=== PATIENT | female | born 1980 | race African-American/Black ===

== ENCOUNTER 2016-10-31 23:55 | Inpatient (IN) | payer OTHER, MEDICAID ==
[~2016-10-31] VITALS: Ht 157.5 cm; Wt 62.1 kg
[2016-11-01] MEDS ORDERED: Hemorrhage Kit, Post Partum XX ONE ×2 (00:30→10:25)
[2016-11-01] MEDS ORDERED: Ondansetron 2 mg/mL 2 mL Inj IVPUSH PRN (00:30)
[2016-11-01] MEDS ORDERED: Oxytocin 10 Unit/mL Inj IM PRN ×2 (00:30→10:25)
[2016-11-01] MEDS ORDERED: Sodium Chloride LOK Flush 10 mL Syringe IVFLUSH PRN (00:30)
[2016-11-01] MEDS ORDERED: Oxytocin 30 Units/500 mL LR 30 UNITS in IV Premix 1 EACH IV PRN ×2 (00:30→10:25)
[2016-11-01] MEDS ORDERED: Methylergonovine 0.2 mg/mL Inj IM PRN ×2 (00:30→10:25)
[2016-11-01] MEDS ORDERED: Carboprost 250 mCg/mL Inj IM PRN ×2 (00:30→10:25)
[2016-11-01 01:03] LABS: Mean Corpuscular Hemoglobin 31.5 pg (27.0-35.0); Mean Corpuscular Volume 92.6 fL (81-100)
[2016-11-01] MEDS: Lactated Ringer's 1,000 ML IV PRN ×2 (03:13→05:22)
[2016-11-01] MEDS ORDERED: PNV1TABL PO (03:37)
[2016-11-01] MEDS ORDERED: [UNRECOGNIZED DRUG - CODE] PO (03:37)
[2016-11-01 04:20] LABS: BASOPHILS % (AUTO) 0.3 % (0-3); EOSINOPHILS % (AUTO) 0.6 % (0-5); Mean Corpuscular Hemoglobin 31.1 pg (27.0-35.0); Mean Corpuscular Volume 90.6 fL (81-100); NEUTROPHILS % (AUTO) 49.1 % (40-74); Platelet Count 92 bil/L (150-400)
[2016-11-01] MEDS: fentaNYL-PF 50 mCg/mL 2 mL Inj IVPUSH PRN ×3 (04:59→09:01)
[2016-11-01 05:39] LABS: Mean Corpuscular Hemoglobin 31.6 pg (27.0-35.0); Mean Corpuscular Volume 93.3 fL (81-100)
[2016-11-01 06:59] LABS: INR 0.87 ratio
--- NOTE | 2016-11-01 07:16 | PCM.ANEPRE ---
Anesthesia Pre-Op Review Reason for Review: Asked to see patient regarding candidacy for epidural placement. Anesthesia Recommendations: Delay until Additional Data Obtain Additional Comments Thrombocytopenic at initial lab draw early this morning. Now with 3 subsequent platelet counts of <100 and trending lower. At this time she is not a candidate for an epidural given the risk of epidural hematoma and down-trending platelets. I recommend opioid and non-opioid analgesia and serial CBC and platelet counts. I have spoken with the patient who is aware of this plan and communicated with the drier belt conveyor. Kevin Champagne MD Nov 01, 2016 07:16
[2016-11-01] MEDS ORDERED: Acetaminophen IV 1,000 MG in IV Premix 1 EACH IV ONE (07:25)
--- NOTE | 2016-11-01 09:33 | PROG NOTE ---
[address] [address] PROGRESS NOTE PATIENT: SHAY SILVESTRE : 1980 MR#: [id number] ADMIT: 11/01/2016 JOB ID: [id number] DATE: 11/01/2016 [facility] NOTE: SUBJECTIVE: The patient is a 36-year-old, G2, P1, AB0, woman, followed prenatally at [facility], see record for details. She ruptured membranes last evening at around 2300 hour, clear fluid. She did not go into labor immediately and was observed for a few hours before Pitocin augmentation was initiated. Initial cervical exam gradually changed to 3.5 cm and now to 6 to 6.5 cm. heart tracing has been okay. Uterine contractions are sometimes a little bit spaced, although contraction progress is continuing, and Pitocin continues. The patient and have understood the importance of Pitocin augmentation for the purpose of initiating and then shortening labor progress in the interest of avoiding infection in light of the ruptured membranes. Note that patient's platelets have been gradually dropping since admission, 97, then 92, then 87, then 80. Current lab pending along with coagulation studies. The patient has very much wanted an epidural anesthetic, although anesthesiologist felt that this could potentially be risky for patient in light of the low and dropping platelets. Thus, intravenous fentanyl and intravenous Tylenol have been provided, along with multiple position changes, time in the bath and a lot of encouragement. It has been our suspicion than gestational thrombocytopenia is present, although cannot rule out ITP or some obscure cause. We have not suspected preeclampsia and note that preeclampsia labs have been fine, and there have been no specific blood pressure or other concerns. We are continuing to track platelets, and I have been in touch with perinatologist at the [facility], as well as local OB anesthesia regarding things we can do to help keep the patient more comfortable, as well as simply regarding the low platelet issue. It appears that labor is now more rapidly progressing, and the patient feels a lot of pressure and desire to push. At 6 to 6.5 cm dilatation, and with head at 0 to +1 station, I am hoping that cervix will soon fade and then that she will be able to soon push out her baby. I have discussed all these things with the patient and her , and they understand. The patient asked for a , although I have explained, as has the nursing staff, the potential increased risk at surgery from a bleeding standpoint with low and dropping platelets, similar to concerns regarding epidural or spinal anesthesia. We are taking one contraction at a time and hoping for progressive cervical change and then soon delivery. Note that the patient's has been very helpful and supportive to his and also has been very, very encouraging for breathing and ongoing efforts to achieve a vaginal . IMPRESSION: 1. A 38 and 5/7 weeks , with prior vaginal delivery. 2. Prior difficult vaginal reportedly after a very lengthy labor and long pushing and reportedly with patient needing multiple providers to lift and position her in order to deliver the head, details sketchy. 3. Spontaneous rupture of membranes at 2300 hours last evening. 4. Active labor now, with Pitocin augmentation occurring. 5. Desires of epidural, although only intravenous fentanyl and some acetaminophen have been provided in light of low platelets. 6. Thrombocytopenia, lowest platelet count thus far at 80 and with trend downward, suspect gestational thrombocytopenia, cannot rule out idiopathic thrombocytopenic purpura. No specific evidence for preeclampsia or other more obscure thrombocytopenia conditions. Another platelet count and coagulation study profile pending. 7. Prior hepatitis B, based on lab findings (negative hepatitis B surface antigen and negative hepatitis Be antigen and negative hepatitis B core antibody IgM). Hepatitis B surface antibody and core antibody total are positive, as is hepatitis Be antibody. Suspect immunity due to natural infection in the past. 8. Declined quad screen. 9. Anemia noted earlier in , with iron-rich foods and iron supplementation recommended. 10. Up to date with flu vaccine and Tdap. 11. Rh positive. 12. Rubella immune. 13. Negative group B streptococcus status. 14. LATEX allergy. 15. Family history of diabetes (brother, type 1), hypertension (parents) and congenital anomaly (brother, type?). PLAN: Continuing labor management expectantly, with great support, unable to provide neuroaxial anesthesia, and preferring vaginal delivery over delivery in an effort to avoid bleeding problems in light of low platelets. Current platelet count and coagulation studies pending, intravenous fentanyl dosing plus intravenous acetaminophen infusion provided for pain, heat pack applied, position changes ongoing, etc. We have also checked with the blood bank and typed and crossed for a couple units of packed red blood cells in case needed, and also reserved the 4 units of platelets that are in our hospital in case needed.
[2016-11-01] MEDS ORDERED: Lactated Ringer's 1,000 ML IV SCH (10:24)
[2016-11-01] MEDS ORDERED: Benzocaine (Dermoplast) 20% 60 Gm Spray TOPICAL PRN (10:25)
[2016-11-01] MEDS ORDERED: Measles-Mumps-Rubella Vaccine 0.5 mL Inj SUBQ ONE (10:25)
[2016-11-01] MEDS ORDERED: TdaP Vaccine 0.5 mL Inj IM ONE (10:25)
[2016-11-01] MEDS ORDERED: LANOlin HPA 7 Gm Ointment TOPICAL PRN (10:25)
[2016-11-01] MEDS ORDERED: Influenza (Adult) Vaccine 0.5 mL Syringe IM ONE (10:25)
[2016-11-01] MEDS: Witch Hazel-Glycerin Pads TOPICAL PRN (10:52)
[2016-11-01] MEDS: HYDROcodone-APAP 5-325 mg Tablet PO PRN ×2 (10:53→15:10)
--- NOTE | 2016-11-01 11:47 | HP ---
[address] [address] HISTORY AND PHYSICAL PATIENT: SHAY SILVESTRE : 1980 MR#: [id number] ADMIT: 11/01/2016 JOB ID: [id number] HISTORY OF PRESENT ILLNESS: The patient has been followed prenatally at [facility], see record for details. She has previously had a vaginal delivery. Note that she had ruptured membranes spontaneously at around 1100 hours in p.m., and clear fluid was noted. She did not immediately go into the labor but was admitted with ruptured membranes at 38-1/2 weeks along. PHYSICAL EXAMINATION ON ADMISSION: Height 62 inches. Last weight in the office 136 pounds. Last blood pressure in the office 102/68. Neck: No thyromegaly. Lungs: Clear to auscultation and percussion. Heart: Regular in rate and rhythm. Abdomen: Fundal height 39 cm. Positive heartbeat. Pelvic examination in the office on October 30, 2016, 2 cm, 50%, -2 station, soft. Cervical exam not accomplished initially on admission due to ruptured membranes and no active labor. DIAGNOSTIC DATA: Hemoglobin 11.0, platelets 97 on admission. IMPRESSION: 1. A 38-1/2 week . 2. Prior vaginal delivery. 3. Spontaneous rupture of membranes, clear fluid. 4. Early uterine contractions, although no true labor yet. 5. Platelets mildly low at 97, for recheck in a bit. 6. Prior anemia noted in , although notably improved with iron supplementation and iron-rich foods. 7. See record for additional details. PLAN: Patient was admitted to [facility] on October 31, 2016, in the evening after spontaneous rupture of membranes at home, not in active labor.
[2016-11-01 16:01] LABS: BASOPHILS % (AUTO) 0 % (0-3); EOSINOPHILS % (AUTO) 0 % (0-5); MONOCYTES % (AUTO) 6.5 % (4-12); Platelet Count 96 bil/L (150-400)
[2016-11-01 16:07] LABS: Mean Corpuscular Hemoglobin 31.6 pg (27.0-35.0); Mean Corpuscular Volume 92.2 fL (81-100); NEUTROPHILS % (AUTO) 85.9 % (40-74)
--- NOTE | 2016-11-01 18:12 | OP ---
[address] [address] OPERATIVE REPORT PATIENT: SHAY SILVESTRE : 1980 MR#: [id number] ADMIT: 11/01/2016 JOB ID: [id number] DATE OF SURGERY: 11/01/2016 TIME: 1030 SURGEON: Henry Marc MD [facility] NOTE: The patient progressed in labor, ultimately steadily progressing through the active phase of labor up to complete cervical dilatation. heart tracing was okay. There were nonworrisome variable heart rate decelerations intermittently, and no ominous pattern. There was always appropriate heart rate response to scalp stimulation. Pain management with regional anesthesia was not undertaken in the setting of low platelets, as low as 80,000, and 83 at last check. Gestational thrombocytopenia has been felt to be the most likely consideration. Intravenous fentanyl and Tylenol were provided. The patient ultimately adapted to not having the epidural, which she had hoped for, and did extremely well working through the active phase of labor and pushed in delivery. Once completely dilated, a very short second stage of labor occurred, with head coming down to position. The head then delivered, followed by the shoulders, body, and extremities. The baby was active and crying and vigorous. Baby was handed to mother for bonding and further nurse management. After 1-2 minutes of delay the umbilical cord was clamped and cut and cord blood was obtained for routine studies. The placenta with membranes was ultimately expelled, intact. There was mild uterine atony, yet bleeding reduced with uterine massage plus intravenous Pitocin infusion. Blood loss was in the 300 mL range. Final intrauterine exam demonstrated no additional tissue or membranes or significant clot. Betadine solution was used to cleanse the vulvovaginal region. The only laceration was that of a very shallow and small midline perineal second-degree laceration, easily repaired with 3-0 chromic suture, with complete hemostasis achieved, no hematoma formation, and skin edges well approximated. The procedures were thus complete. Bleeding was minimal. The laceration had been repaired and there were no urethral or rectal area lacerations or stitches. The instrument, needle, and sponge counts were all found to be correct. Note that the anesthesia with lidocaine had been applied in the perineal region to facilitate the laceration closure. It certainly is anticipated that mother and baby will do well during the period. Note that we will track platelet count, with next check at about 6 hours following delivery, and then again probably in the morning of the first day. Platelets and drift downward a little bit after delivery, but I would anticipate that the platelet count will then subsequently rebound, then gradually normalize over time. MTDD
[2016-11-01] MEDS: oxyCODONE-Acetamin 5-325 mg Tablet PO PRN (19:49)
[2016-11-02] MEDS: oxyCODONE-Acetamin 5-325 mg Tablet PO PRN ×3 (00:08→12:59)
[2016-11-02 07:54] LABS: Mean Corpuscular Hemoglobin 31.2 pg (27.0-35.0); Mean Corpuscular Volume 93.7 fL (81-100)
--- NOTE | 2016-11-02 10:15 | PCM.DIOB ---
Obstetrical Disch Instruction Dates of Hospitalization Date of Hospital Admission Nov 01, 2016 at 00:04 Providers Admitting Physician: Henry Marc MD Primary Care Physician: Henry Marc MD Attending Physician: Henry Marc MD Discharge Diagnosis Problems: (1) Status: Acute ICD Code: Z33.1 (2) Gestational thrombocytopenia without hemorrhage Status: Acute ICD Code: O99.119 Diet Discharge Diet: No restrictions Activity Discharge Activity-General: Pelvic Rest for 6 weeks Dressing and Incisional Care Hygiene: May shower, NO bathtub, hot tub or whirlpool, Perineal care, Sitz bath , Dermoplast spray, Witch Patricia pads, Ice Follow Up Plan Follow-up appointment: Weeks (Follow up in 6 weeks for checkup with Dr. Marc.) Call your provider for: Fever or Chills, Shortness of breath, Heavy vaginal bleeding, Red painful breasts Attending Statement Please make a Lab Slip for patient to have Platelet Count checked as an outpatient on Friday. Thank You. Henry Marc MD Nov 02, 2016 10:15
[2016-11-02] MEDS ORDERED: IBUP-1827 PO (10:20)
[2016-11-02] MEDS ORDERED: DOCU-41 PO (10:20)
[2016-11-02] MEDS ORDERED: OXYC1TAB24 PO (10:20)
[2016-11-02 11:30] VITALS: BP 88/54; PULSE 86; RESP 16
[2016-11-02] MEDS: Witch Hazel-Glycerin Pads TOPICAL PRN (12:58)
--- NOTE | 2016-11-02 13:31 | DIS ---
[address] [address] DISCHARGE SUMMARY PATIENT: SHAY SILVESTRE : 1980 MR#: [id number] ADMIT: 11/01/2016 JOB ID: [id number] DIS: 11/02/2016 DISCHARGE DIAGNOSES: 1. Term , delivered. 2. Gestational thrombocytopenia. PROCEDURES PERFORMED DURING HOSPITALIZATION: 1. Labor augmentation with Pitocin. 2. Vaginal delivery. 3. Repair of perineal laceration. HOSPITAL COURSE: Patient admitted to [facility] and ultimately underwent procedures as described. Note that labor itself was uncomplicated, although the patient was unable to receive epidural anesthesia due to low platelets, down to 80, suspect related to gestational thrombocytopenia. The patient did not bleed excessively. During the timeframe, patient did well, with stable vitals, afebrile, with reasonable bleeding and pain management (hemorrhoid development caused probably the greatest amount of pain along with pubic area discomfort, consistent with bruising and/or possible diastasis contribution), there was no leg pain or shortness of breath, patient had reasonable bleeding, and she was able to void well. She did not have much stitch pain, and she handled baby well. Note that , platelets went up from 83 to 96, and then back down to 82, suspecting that they will gradually improve over time. DISCHARGE PROGRAM: Patient will call p.r.n., yet otherwise she will follow up at six weeks for checkup with Dr. Marc at [facility]. She also is to have platelet check in two days following discharge, suspect gradual resolution of thrombocytopenia consistent with anticipated course for gestational thrombocytopenia. If platelets do not appropriately elevate in time, will implement additional workup, although not expected. The patient will observe pelvic rest for six weeks. She will use preparation H that she has at home a few times a day on the hemorrhoids, for at least a week. She has been given ibuprofen and Percocet prescriptions, and she will use vitamin daily (already having supply at home). [facility]
== END 2016-11-02 13:16 | disposition home or self-care (01) | DRG 775 ==
LOC: FBCO 23:55 → FBC 11-01 00:04
PROVIDERS: ADMIT Obstetrics & Gynecology; ATTEND Obstetrics & Gynecology
PROC: 10E0XZZ Delivery of Products of Conception, External Approach (ICD-10-PCS; principal; 2016-11-01)
PROC: 0KQM0ZZ Repair Perineum Muscle, Open Approach (ICD-10-PCS; 2016-11-01)
DX: O99.12 Other diseases of the blood and blood-forming organs and certain disorders involving the immune mechanism complicating childbirth (principal); D69.6 Thrombocytopenia, unspecified; Z3A.38 38 weeks gestation of pregnancy; Z37.0 Single live birth; O70.1 Second degree perineal laceration during delivery; O62.2 Other uterine inertia